=== PATIENT | female | born 1965 | race Caucasian/White ===

== ENCOUNTER → 2019-09-28 | Outpatient (CLI) | payer BC | END | disposition home or self-care (01) | LOC: COVID19 00:36 | DX: Z03.818 Encounter for observation for suspected exposure to other biological agents ruled out (principal) ==

== ENCOUNTER 2021-12-06 18:20 | Emergency (ER) | payer OTHER ==
[~2021-12-06] VITALS: Ht 167.6 cm; Wt 90.7 kg
[2021-12-06] MEDS ORDERED: MOTRIN 600 MG E4 TAB PO (20:35)
== END 2021-12-06 20:39 | disposition home or self-care (01) ==
LOC: ED 18:20
DX: M25.562 Pain in left knee (principal); Z88.0 Allergy status to penicillin; X50.1XXA Overexertion from prolonged static or awkward postures, initial encounter; Y93.89 Activity, other specified; Y92.89 Other specified places as the place of occurrence of the external cause; Y99.8 Other external cause status

== ENCOUNTER → 2023-06-30 | Outpatient (CLI) | payer BC ==
[~2023-06-30] MED LIST: MOTRIN 600 MG E4 TAB PO
== END | disposition home or self-care (01) ==
LOC: CARD 01:31
PROVIDERS: ATTEND Physician Assistant
DX: I10 Essential (primary) hypertension (principal); F41.9 Anxiety disorder, unspecified; R00.2 Palpitations; Z87.891 Personal history of nicotine dependence

== ENCOUNTER → 2023-10-28 | Outpatient (CLI) | payer BC | END | disposition home or self-care (01) | LOC: CARD 07:30 | PROVIDERS: ATTEND Internal Medicine Cardiovascular Disease | DX: I08.1 Rheumatic disorders of both mitral and tricuspid valves (principal); I10 Essential (primary) hypertension; R60.0 Localized edema; R00.2 Palpitations; Z86.79 Personal history of other diseases of the circulatory system ==